=== PATIENT | male | born 1955 | race Caucasian/White ===

== ENCOUNTER 2019-03-20 05:38 | Inpatient (IN) | payer OTHER ==
--- NOTE | 2019-03-20 07:55 | PDOC ---
History of Present Illness - General Chief Complaint: Injury Stated Complaint: FALL Time Seen by Provider: 03/20/19 07:20 - History of Present Illness Initial Comments: 03/20/19 09:26 63yo M w/no PMH presents from home c/o L-sided chest pain s/p mechanical fall. Pt was in tub at 0200 and slipping and fell onto L side. Pt c/o pain in entire L side from shoulder to above L hip, 25/10 severity, constant, worse with deep breaths. Denies head injury, LOC, preceding sx such as dizziness or CP or palpitations, seizure activity including tongue biting or urinary incontinence, confusion, dizziness, CP, abdominal pain, back pain, neck pain, numbness/ tingling, weakness. Past History - Past Medical History Allergies/Adverse Reactions: Allergies Allergy/AdvReac Type Severity Reaction Status Date / Time No Known Allergies Allergy Verified 03/20/19 09:17 Home Medications: Ambulatory Orders NK [No Known Home Medication] 03/20/19 COPD: No - Suicide/Smoking/Psychosocial Hx Smoking History: Current every day smoker Number of Cigarettes Smoked Daily: 1 Information on smoking cessation initiated: No Hx Alcohol Use: No Drug/Substance Use Hx: No *Physical Exam - Vital Signs Last Vital Signs Temp Pulse Resp BP Pulse Ox 97.6 F 92 H 18 131/66 96 03/20/19 05:45 03/20/19 05:45 03/20/19 05:45 03/20/19 05:45 03/20/19 07:26 - Physical Exam Comments: 03/20/19 12:40 Gen: Alert, NAD, uncomfortable-appearing, lying on back. HEENT: PERRL, EOMI, MMM, NCAT. No conjunctival pallor. Sclera are non-icteric. Oropharynx is clear. Neck is supple. CV: Regular rate and rhythm. No murmurs, rubs, or gallops. PULM: No resp distress. CTAB, no wheezes, rales, or rhonchi. CHEST: tenderness to light palpation over all L ribs, no ecchymoses, no deformities seen. ABD: soft, NT/ND, no rebound tenderness or guarding, no CVA tenderness. BACK: No TTP of c/t/l-spine. No step-offs or deformities. MSK: No bony deformities. 2+ pulses in all extremities. Pelvis stable. Full ROM of b/l hips, L elbow, L wrist, and L shoulder. No TTP of L shoulder. NEURO: AAOx3. PERRL. No gross CN deficits. Strength and sensation grossly intact throughout. EXTREMITIES: No cyanosis. No clubbing. No edema. No calf tenderness. PSYCH: Normal mood and thought pattern. SKIN: Warm and dry. Normal capillary refill. No rashes. No jaundice. Heart Score/ECG Review - ECG Impressions Comment:: 03/20/19 18:26 NSR, 89bpm, normal axis, no ANNA/TWI ED Treatment Course - LABORATORY CBC & Chemistry Diagram: 03/20/19 13:03 03/20/19 13:03 Medical Decision Making - Medical Decision Making 03/20/19 09:31 63yo M w/no PMH presents from home c/o L-sided chest pain s/p mechanical fall. Pt was in tub at 0200 and slipping and fell onto L side. Pt c/o pain in entire L side from shoulder to above L hip, 25/10 severity, constant, worse with deep breaths. Denies head injury, LOC, preceding sx such as dizziness or CP or palpitations, seizure activity including tongue biting or urinary incontinence, confusion, dizziness, CP, abdominal pain, back pain, neck pain, numbness/ tingling, weakness. -XRs: chest, L ribs, L shoulder -Percocet and Tylenol for pain -Dispo: pending workup Pt refuses XRs 2/2 pain. Add 6 IM Morphine. 03/20/19 12:34 XRs obtained. Per my read, L rib fx. Inspiratory spirometer ordered. Pt still in significant pain - 1mg dilaudid and labs in case of admission. 03/20/19 12:45 CXR: cardiomegaly. No acute pulmonary pathology XR L shoulder: no acute pathology 03/20/19 14:22 Pt unable to walk and still in pain. Admit to Dr. Alcazar. Spoke with [facility] - requested UA/, will admit. 03/20/19 18:23 Addendum to ribs XR: AP view left ribs: cortical lucencies seen in lateral aspect of L 5th may likely represent nondisplaced fx Labs reviewed. No concerning findings on blood or urine. *DC/Admit/Observation/Transfer Diagnosis at time of Disposition: Rib fracture - Discharge Dispostion Condition at time of disposition: Fair Decision to Admit order: Yes - Referrals - Patient Instructions - Post Discharge Activity
[2019-03-20] MEDS ORDERED: ACETAMINOPHEN 325 MG TABLET (FP) PO ONE (08:00)
--- NOTE | 2019-03-20 08:30 | PDOC ---
Attending Attestation - Resident Resident Name: Rosanna Pimentel - ED Attending Attestation I have performed the following: I have examined & evaluated the patient, The case was reviewed & discussed with the resident, I agree w/resident's findings & plan, Exceptions are as noted - HPI HPI: 03/20/19 08:29 63y M no pmhx presents s/p fall from slip and fall while in the bathtub. He fell on his left side landing on the bottom of the tub. Pt notes significant amount of discomfort in his left chest/flank . the patient denies head injury, LOC, neck pain, back pain, numbness, tingling, weakness, vision changes. The patient denies on being any blood thinners or other medications. no extremity any discomfort. No symptoms prior to fall GENERAL: The patient is awake, alert, and fully oriented, Nontoxic - in no acute distress. HEAD: Normocephalic, atraumatic, negative Chatman's sign, n ofocal ttp/stepoffs/ contusions appreciated EYES: extraocular movements intact, sclera anicteric, conjunctiva clear, no racoon eyes ENT: Normal voice, Moist mucous membranes. NECK: Normal range of motion, supple, normal rom, no focal midline ttp LUNGS: Breath sounds equal, clear to auscultation bilaterally. HEART: Regular rate and rhythm, CHEST: diffusely ttp on L flank, no ecchymosis/crepitus appreciated ABDOMEN: Soft, nontender, No guarding, no rebound. No CVA tenderness EXTREMITIES: Normal range of motion, no edema. moving all 4 extremities spontaneously and symmetrically no focal bony tenderness on extremities NEUROLOGICAL: No facial assymetry, Normal speech, PSYCH: Normal mood, normal affect. SKIN: Warm, Dry, normal turgor, Suspect rib fx vs contusion - will obtain x-ray to rule out fracture, analgesia will erassess - Physicial Exam PE: 03/20/19 14:48 see above - Medical Decision Making 03/20/19 14:48 pt with rib fx - persistent pain pt was admitted for pain control Heart Score/ECG Review - ECG Impressions Comment:: 03/20/19 14:48 Twelve-lead EKG was performed and reviewed by me. There is normal sinus rhythm with a normal rate. rate of 89 The axis is normal. The intervals are normal. There is normal R wave progression There are no ST or T wave abnormalities. Impression: Normal twelve-lead EKG
[2019-03-20] MEDS ORDERED: morphine SULFATE 4 MG/ML VIAL IM ONE (09:15)
[2019-03-20] MEDS ORDERED: morphine SULFATE 4 MG/ML VIAL ONE (09:19)
[2019-03-20] MEDS ORDERED: MORPHINE SULFATE 2 MG/ML VIAL ONE (09:19)
[2019-03-20] MEDS ORDERED: HYDROmorphone HCL CARPU-JECT 2 MG/1 ML DISP.SYRIN IVPUSH ONE (12:32)
[2019-03-20] MEDS ORDERED: HYDROmorphone HCl 2 MG/ML VIAL ONE (12:39)
[2019-03-20 13:49] LABS: BASO % 0.5 % (0-2.0); EOS % 0.4 % (0-4.5); HEMATOCRIT 42.3 % (35.4-49); HEMOGLOBIN 14.6 GM/dL (11.7-16.9); LYMPH % 10.7 % (8-40); MCH 28.8 pg (25.7-33.7); MCHC 34.4 g/dl (32.0-35.9); MEAN CELL VOLUME 83.8 fl (80-96); MONO % 5.8 % (3.8-10.2); NEUT % 82.6 % (42.8-82.8); PLATELET COUNT 176 K/MM3 (134-434); RBC 5.04 M/mm3 (4.00-5.60); RDW 15.4 % (11.9-15.9); WHITE BLOOD COUNT 8.2 K/mm3 (4.0-10.0)
[2019-03-20 14:00] LABS: INR 1.04 (0.83-1.09); PROTHROMBIN TIME (PATIENT) 12.3 SEC (9.7-13.0)
[2019-03-20 14:11] LABS: ALBUMIN 3.6 g/dl (3.4-5.0); BILIRUBIN,TOTAL 0.8 mg/dL (0.2-1); CALCIUM 8.5 mg/dL (8.5-10.1); CREATININE 0.8 mg/dL (0.55-1.3); POTASSIUM 3.9 mmol/L (3.5-5.1)
[2019-03-20 14:59] LABS: PH,URINE 6.5 (5.0-8.0); URINE APPEARANCE CLEAR; URINE BILIRUBIN NEGATIVE (NEGATIVE); URINE COLOR YELLOW; URINE GLUCOSE (UA) NEGATIVE (NEGATIVE); URINE KETONE NEGATIVE (NEGATIVE); URINE LEUK ESTERASE NEGATIVE (NEGATIVE); URINE NITRITE NEGATIVE (NEGATIVE); URINE PROTEIN NEGATIVE (NEGATIVE)
--- NOTE | 2019-03-20 15:16 | EKG ---
Test Reason : Blood Pressure : / mmHG Vent. Rate : 089 BPM Atrial Rate : 089 BPM P-R Int : 150 ms QRS Dur : 090 ms QT Int : 360 ms P-R-T Axes : 027 010 054 degrees QTc Int : 438 ms NORMAL SINUS RHYTHM NORMAL ECG NO PREVIOUS ECGS AVAILABLE Confirmed by OLE REBOLLAR MD ([id number]) on 03/20/2019 3:16:19 PM Referred By: Confirmed By:OLE REBOLLAR MD
--- NOTE | 2019-03-20 17:04 | HP ---
Admitting History and Physical - Primary Care Physician PCP: Tameka Barnard - Admission Chief Complaint: Mechanical Fall, L sided pain History of Present Illness: Patient is a 63 y/o male with no significant past medical history. Patient states that while taking a shower at 2am he slipped and had a mechanical fall. Denies LOC, denies hitting his head. Patient states he landed on his left side. Pain is felt from LUE down to LLE, complains of painful inspiration. Patient is having difficulty ambulating due to pain. Denies dizziness, SOB, or chest pain prior to his fall. History Source: Patient Limitations to Obtaining History: No Limitations - Past Surgical History Past Surgical History: Yes: Cholecystectomy - Smoking History Smoking history: Current every day smoker Aproximately how many cigarettes per day: 1 - Alcohol/Substance Use Hx Alcohol Use: No - Social History ADL: Independent History of Recent Travel: No Home Medications - Allergies Allergies/Adverse Reactions: Allergies Allergy/AdvReac Type Severity Reaction Status Date / Time No Known Allergies Allergy Verified 03/20/19 09:17 - Home Medications Home Medications: Ambulatory Orders NK [No Known Home Medication] 03/20/19 Review of Systems - Review of Systems Constitutional: reports: No Symptoms Eyes: reports: No Symptoms HENT: reports: No Symptoms Neck: reports: No Symptoms Cardiovascular: reports: No Symptoms Respiratory: reports: No Symptoms Gastrointestinal: reports: No Symptoms Genitourinary: reports: No Symptoms Breasts: reports: No Symptoms Reported Musculoskeletal: reports: Extremity Pain (LLE), Joint Pain (L shoulder) Neurological: reports: No Symptoms Endocrine: reports: No Symptoms Hematology/Lymphatic: reports: No Symptoms Psychiatric: reports: No Symptoms Physical Examination Vital Signs: Vital Signs Temperature 97.8 F 03/20/19 16:40 Pulse Rate 80 03/20/19 16:40 Respiratory Rate 18 03/20/19 05:45 Blood Pressure 123/75 03/20/19 16:40 O2 Sat by Pulse Oximetry (%) 93 L 03/20/19 16:40 Constitutional: Yes: Well Nourished, No Distress, Calm Eyes: Yes: Conjunctiva Clear HENT: Yes: Atraumatic Neck: Yes: Supple Cardiovascular: Yes: Regular Rate and Rhythm Respiratory: Yes: Regular, CTA Bilaterally Gastrointestinal: Yes: Normal Bowel Sounds, Soft, Abdomen, Obese Musculoskeletal: Yes: Muscle Weakness, Other (limited passive ROM left arm) Extremities: Yes: WNL Edema: No Neurological: Yes: Alert, Oriented Psychiatric: Yes: Alert, Oriented Labs: CBC, BMP 03/20/19 13:03 03/20/19 13:03 Imaging - Results X-ray: Report Reviewed Problem List - Problems (1) Rib fracture Assessment/Plan: -CXR shows cortical lucencies seen in the lateral aspect of the left fifth rib may likely represent nondisplaced fracture -Pulm consult -incentive spirometer -pain control Code(s): S22.39XA - FRACTURE OF ONE RIB, UNSP SIDE, INIT FOR CLOS FX (2) Unsteady gait Assessment/Plan: -fall precaution -PT Code(s): R26.81 - UNSTEADINESS ON FEET Assessment/Plan see problem list dvt ppx
[2019-03-20] MEDS: traMADol HCL 50 MG TABLET PO PRN (22:12)
[2019-03-20] MEDS: HEPARIN NA (PORCINE) 5,000 UNITS/ML 1ML VIAL SQ SCH (22:16)
[2019-03-21] MEDS: ACETAMINOPHEN 325 MG TABLET (FP) PO PRN ×2 (01:45→09:31)
[2019-03-21 07:37] LABS: BASO % 0.4 % (0-2.0); EOS % 1.1 % (0-4.5); HEMATOCRIT 40.5 % (35.4-49); LYMPH % 14.1 % (8-40); MCH 29.2 pg (25.7-33.7); MCHC 34.6 g/dl (32.0-35.9); MEAN CELL VOLUME 84.3 fl (80-96); MEAN PLT VOLUME 9.2 fl (7.5-11.1); MONO % 7.7 % (3.8-10.2); NEUT % 76.7 % (42.8-82.8); RBC 4.81 M/mm3 (4.00-5.60); RDW 15.1 % (11.9-15.9); WHITE BLOOD COUNT 7.4 K/mm3 (4.0-10.0)
[2019-03-21 07:54] LABS: ALBUMIN 3.3 g/dl (3.4-5.0); BILIRUBIN,TOTAL 1.4 mg/dL (0.2-1); BLOOD UREA NITROGEN 14.5 mg/dL (7-18); CALCIUM 8.1 mg/dL (8.5-10.1); CREATININE 0.8 mg/dL (0.55-1.3); MAGNESIUM 2.5 mg/dL (1.8-2.4); PHOSPHOROUS 3.7 mg/dL (2.5-4.9); TOT PROT 6.6 g/dl (6.4-8.2)
[2019-03-21 08:12] VITALS: BMI 31.6
[2019-03-21 08:23] LABS: PLATELET COUNT 169 K/MM3 (134-434)
[2019-03-21] MEDS: HEPARIN NA (PORCINE) 5,000 UNITS/ML 1ML VIAL SQ SCH ×2 (10:26→21:46)
[2019-03-21] MEDS: traMADol HCL 50 MG TABLET PO PRN ×2 (11:26→21:49)
[2019-03-21] MEDS ORDERED: ACETAMINOPHEN 325 MG TABLET (FP) PO ONE (12:42)
[2019-03-21] MEDS ORDERED: oxyCODONE HCL 5 MG TABLET PO ONE (13:00)
--- NOTE | 2019-03-21 15:52 | CON.PULM ---
Consult Consult Specialty:: PULM/CCM Referred by:: LUKE Reason for Consultation:: SOB - History of Present Illness Chief Complaint: CP S/P Fall History of Present Illness: 63 M, with no significant past medical history. S/P mechanical fall while at a hotel. He apparently slipped in some water on the floor. No LOC. No seizure activity. He did not his head. Patient states that he landed on his left side. Most of his pain/symptoms are on inspiration. Patient also reports having difficulty ambulating due to pain. CXR / Rib Xray: Minimal non-displaced fracture of the left fifth rib / No Pleural effusions / No PTX - History Source History Provided By: Patient Limitations to Obtaining History: No Limitations - Past Medical History Pulmonary: No: Asthma, Bronchitis, Cancer, COPD, O2 Dependent, Pneumonia, Previously Intubated, Pulmonary Embolus, Pulmonary Fibrosis, Sleep Apnea - Past Surgical History Past Surgical History: Yes: Cholecystectomy - Alcohol/Substance Use Hx Alcohol Use: No - Smoking History Smoking history: Current every day smoker Aproximately how many cigarettes per day: 1 - Social History ADL: Independent History of Recent Travel: No Home Medications - Allergies Allergies/Adverse Reactions: Allergies Allergy/AdvReac Type Severity Reaction Status Date / Time No Known Allergies Allergy Verified 03/20/19 09:17 - Home Medications Home Medications: Ambulatory Orders NK [No Known Home Medication] 03/20/19 Review of Systems - Review of Systems Constitutional: denies: Chills, Fever Eyes: reports: No Symptoms HENT: reports: No Symptoms Neck: reports: No Symptoms Cardiovascular: reports: Chest Pain, Shortness of Breath. denies: Edema, Palpitations Respiratory: reports: Cough, Snoring, SOB, SOB on Exertion. denies: Exercise Intolerance, Hemoptysis, Orthopnea, PND, Wheezing Gastrointestinal: reports: No Symptoms Genitourinary: reports: No Symptoms Breasts: reports: No Symptoms Reported Musculoskeletal: reports: Back Pain, Muscle Cramps Integumentary: reports: No Symptoms Neurological: reports: No Symptoms Endocrine: reports: No Symptoms Hematology/Lymphatic: reports: No Symptoms Psychiatric: reports: No Symptoms Physical Exam Vital Sings: Vital Signs Temperature 98.3 F 03/21/19 14:03 Pulse Rate 85 03/21/19 14:03 Respiratory Rate 20 03/21/19 14:03 Blood Pressure 138/72 03/21/19 14:03 O2 Sat by Pulse Oximetry (%) 97 03/20/19 22:45 Constitutional: Yes: No Distress, Anxious Eyes: Yes: Conjunctiva Clear, EOM Intact HENT: Yes: Atraumatic, Normocephalic Neck: Yes: Supple, Trachea Midline Cardiovascular: Yes: Regular Rate and Rhythm Respiratory: Yes: CTA Bilaterally. No: Accessory Muscle Use, Cough, Rales, Rhonchi, SOB, Stridor, Tachypnea, Wheezes ...Inspection: Yes: WNL ...Clubbing: No Gastrointestinal: Yes: Normal Bowel Sounds, Soft, Abdomen, Obese Renal/: Yes: WNL Musculoskeletal: Yes: Muscle Pain Extremities: Yes: WNL Edema: No Peripheral Pulses WNL: Yes Integumentary: Yes: WNL Neurological: Yes: WNL, Alert, Oriented ...Motor Strength: WNL Psychiatric: Yes: WNL, Alert, Oriented Labs: CBC, BMP 03/21/19 06:45 03/21/19 06:45 Imaging - Results Chest X-ray: Report Reviewed, Image Reviewed X-ray: Report Reviewed, Image Reviewed Problem List - Problems (1) Fall Code(s): W19.XXXA - UNSPECIFIED FALL, INITIAL ENCOUNTER (2) Rib fracture Code(s): S22.39XA - FRACTURE OF ONE RIB, UNSP SIDE, INIT FOR CLOS FX Assessment/Plan IMP: Likely minimal non-displaced fracture of the left 5th rib There is no evidence of PTX or pleural effusion to suggest hemothorax PLAN: Analgesics Incentive Spirometry VTE prophylaxis Fall precautions There is no Pulmonary Contraindication for D/C Home Dr Calhoun
--- NOTE | 2019-03-21 21:44 | PN ---
Progress Note, Physician - Current Medication List Current Medications: Active Medications Acetaminophen (Tylenol -) 650 mg PO Q6H PRN PRN Reason: PAIN LEVEL 1-5 Last Admin: 03/21/19 09:31 Dose: 650 mg Heparin Sodium (Porcine) (Heparin -) 5,000 unit SQ BID AZIZA Last Admin: 03/21/19 10:26 Dose: 5,000 unit Tramadol HCl (Ultram -) 50 mg PO Q6H PRN PRN Reason: PAIN LEVEL 6-10 Last Admin: 03/21/19 11:26 Dose: 50 mg - Objective Vital Signs: Vital Signs Temperature 98.3 F 03/21/19 14:03 Pulse Rate 85 03/21/19 14:03 Respiratory Rate 20 03/21/19 14:03 Blood Pressure 138/72 03/21/19 14:03 O2 Sat by Pulse Oximetry (%) 97 03/21/19 11:00 Labs: CBC, BMP 03/21/19 06:45 03/21/19 06:45 INR, PTT INR 1.04 (0.83-1.09) 03/20/19 13:03
[2019-03-22] MEDS: ACETAMINOPHEN 325 MG TABLET (FP) PO PRN (01:21)
[2019-03-22] MEDS: traMADol HCL 50 MG TABLET PO PRN ×2 (08:34→19:29)
[2019-03-22] MEDS: HEPARIN NA (PORCINE) 5,000 UNITS/ML 1ML VIAL SQ SCH ×2 (10:13→21:44)
--- NOTE | 2019-03-22 19:12 | PN ---
Progress Note, Physician History of Present Illness: Pt states that he cannot move out of bed Pt also refused to be examined bc he can't move bc of pain Pt states that pain goes from his lt axilla down to lt flank Pt denies any nausea/vomiting/back pain/numbness/tingling - Current Medication List Current Medications: Active Medications Acetaminophen (Tylenol -) 650 mg PO Q6H PRN PRN Reason: PAIN LEVEL 1-5 Last Admin: 03/22/19 01:21 Dose: 650 mg Heparin Sodium (Porcine) (Heparin -) 5,000 unit SQ BID AZIZA Last Admin: 03/22/19 10:13 Dose: 5,000 unit Tramadol HCl (Ultram -) 50 mg PO Q6H PRN PRN Reason: PAIN LEVEL 6-10 Last Admin: 03/22/19 08:34 Dose: 50 mg - Objective Vital Signs: Vital Signs Temperature 97.7 F 03/22/19 14:00 Pulse Rate 89 03/22/19 14:00 Respiratory Rate 20 03/22/19 14:00 Blood Pressure 138/70 03/22/19 14:00 O2 Sat by Pulse Oximetry (%) 97 03/22/19 09:00 Constitutional: Yes: Well Nourished Labs: CBC, BMP 03/21/19 06:45 03/21/19 06:45 INR, PTT INR 1.04 (0.83-1.09) 03/20/19 13:03 Problem List - Problems (1) Rib fracture Assessment/Plan: Cont tramadol Pt told that he has to try to get out of bed but he refuses Pt states that he will not move from bed until he is better Long d/w pt about need to get OOB to chair Pt told he needs to have PT However pt is refusing Code(s): S22.39XA - FRACTURE OF ONE RIB, UNSP SIDE, INIT FOR CLOS FX (2) Fall Assessment/Plan: Check XRAY of LS spine and thoracic spine Code(s): W19.XXXA - UNSPECIFIED FALL, INITIAL ENCOUNTER
[2019-03-23 07:35] LABS: BASO % 0.6 % (0-2.0); EOS % 0.6 % (0-4.5); HEMATOCRIT 44.8 % (35.4-49); HEMOGLOBIN 15.6 GM/dL (11.7-16.9); LYMPH % 12.1 % (8-40); MCH 29.5 pg (25.7-33.7); MCHC 34.8 g/dl (32.0-35.9); MEAN CELL VOLUME 84.8 fl (80-96); MEAN PLT VOLUME 9.3 fl (7.5-11.1); MONO % 5.4 % (3.8-10.2); NEUT % 81.3 % (42.8-82.8); PLATELET COUNT 177 K/MM3 (134-434); RBC 5.28 M/mm3 (4.00-5.60); WHITE BLOOD COUNT 8.9 K/mm3 (4.0-10.0)
[2019-03-23 08:02] LABS: ALBUMIN 3.6 g/dl (3.4-5.0); BILIRUBIN,TOTAL 0.6 mg/dL (0.2-1); BLOOD UREA NITROGEN 15.5 mg/dL (7-18); CALCIUM 9.2 mg/dL (8.5-10.1); CREATININE 0.8 mg/dL (0.55-1.3); POTASSIUM 4.2 mmol/L (3.5-5.1)
[2019-03-23] MEDS: traMADol HCL 50 MG TABLET PO PRN ×2 (10:03→18:12)
[2019-03-23] MEDS: HEPARIN NA (PORCINE) 5,000 UNITS/ML 1ML VIAL SQ SCH ×2 (10:04→21:40)
--- NOTE | 2019-03-23 20:50 | PN ---
Progress Note, Physician History of Present Illness: Pt states that he cannot move out of bed Pt refusing to get out of bed or move Pt refused xrays last night and refusing to get up for physical therapist Pt states that pain goes from his lt axilla down to lt flank Pt denies any nausea/vomiting/back pain/numbness/tingling - Current Medication List Current Medications: Active Medications Acetaminophen (Tylenol -) 650 mg PO Q6H PRN PRN Reason: PAIN LEVEL 1-5 Last Admin: 03/22/19 01:21 Dose: 650 mg Heparin Sodium (Porcine) (Heparin -) 5,000 unit SQ BID AZIZA Last Admin: 03/23/19 10:04 Dose: 5,000 unit Tramadol HCl (Ultram -) 50 mg PO Q6H PRN PRN Reason: PAIN LEVEL 6-10 Last Admin: 03/23/19 18:12 Dose: 50 mg - Objective Vital Signs: Vital Signs Temperature 97.8 F 03/23/19 19:57 Pulse Rate 99 H 03/23/19 19:57 Respiratory Rate 20 03/23/19 19:57 Blood Pressure 139/73 03/23/19 19:57 O2 Sat by Pulse Oximetry (%) 98 03/23/19 09:00 Constitutional: Yes: Well Nourished Cardiovascular: Yes: WNL, Regular Rate and Rhythm Gastrointestinal: Yes: WNL, Normal Bowel Sounds, Soft Labs: CBC, BMP 03/23/19 06:30 03/23/19 06:30 INR, PTT INR 1.04 (0.83-1.09) 03/20/19 13:03 Problem List - Problems (1) Rib fracture Assessment/Plan: Cont tramadol Pt told that he has to try to get out of bed but he refuses Pt states that he will not move from bed until he is better Long d/w pt about need to get OOB to chair Pt is not cooperating w/ medical care Pt advised that at this point I am giving him 24 hrs and will dc pt in am Code(s): S22.39XA - FRACTURE OF ONE RIB, UNSP SIDE, INIT FOR CLOS FX (2) Fall Assessment/Plan: Pt refused xrays of LS spine and thoracic spine Code(s): W19.XXXA - UNSPECIFIED FALL, INITIAL ENCOUNTER
[2019-03-24] MEDS: HEPARIN NA (PORCINE) 5,000 UNITS/ML 1ML VIAL SQ SCH (10:55)
[2019-03-24] MEDS: traMADol HCL 50 MG TABLET PO PRN (11:43)
[2019-03-24 15:09] VITALS: BP 136/68; PULSE 91; TEMP 98.1
== END 2019-03-24 16:34 | disposition home health service (06) | DRG 144 ==
LOC: JER 05:38 → JERBED 14:24 → J8W 21:59
PROVIDERS: ADMIT Internal Medicine; ATTEND Internal Medicine
DX: S22.32XA Fracture of one rib, left side, initial encounter for closed fracture (principal); W18.2XXA Fall in (into) shower or empty bathtub, initial encounter; Y92.091 Bathroom in other non-institutional residence as the place of occurrence of the external cause; R26.81 Unsteadiness on feet
CPT/HCPCS: 36415; 71045-TC-FY; 71101-TC-LT-FY; 72070-TC-FY; 72100-TC-FY; 73030-TC-LT-FY; 80053; 81003; 83735; 84100; 84436; 84443; 84484; 85025; 85610; 85730; 86850; 86900; 86901; 87086; 93005; 93010; 99283-25; J1644

== ENCOUNTER 2021-10-14 22:15 | Emergency (ER) | payer SELFPAY ==
[2021-10-14 22:23] VITALS: BP 127/63; PULSE 87; TEMP 98; BMI 25.5
[2021-10-14 23:50] LABS: BASO % 0.9 % (0-2.0); EOS % 2.8 % (0-4.5); HEMATOCRIT 40.7 % (35.4-49); HEMOGLOBIN 13.8 GM/dL (11.7-16.9); LYMPH % 23.7 % (8-40); MCH 28.3 pg (25.7-33.7); MEAN CELL VOLUME 83.2 fl (80-96); MEAN PLT VOLUME 8.9 fl (7.5-11.1); MONO % 7.9 % (3.8-10.2); NEUT % 64.7 % (42.8-82.8); PLATELET COUNT 187 10^3/uL (134-434); RBC 4.89 M/mm3 (4.00-5.60); WHITE BLOOD COUNT 6.5 K/mm3 (4.0-10.0)
[2021-10-15 00:01] LABS: INR 1.19 (0.83-1.09); PROTHROMBIN TIME (PATIENT) 13.7 SEC (9.7-13.0)
[2021-10-15] MEDS ORDERED: ACETAMINOPHEN 1000 MG/100 ML BAG IVPB ONE (00:15)
[2021-10-15 00:20] LABS: ALBUMIN 3.5 g/dl (3.4-5.0); CALCIUM 8.6 mg/dL (8.5-10.1)
[2021-10-15 00:25] LABS: BILIRUBIN,TOTAL 0.6 mg/dL (0.2-1); TOT PROT 6.6 g/dl (6.4-8.2)
[2021-10-15 00:28] LABS: N-TERMINAL BNP 64.3 pg/ml (5-125)
== END 2021-10-15 01:56 | disposition left against medical advice (07) ==
LOC: JER 22:15
PROC: 3E0333Z Introduction of Anti-inflammatory into Peripheral Vein, Percutaneous Approach (ICD-10-PCS; principal; 2021-10-14)
DX: R60.0 Localized edema (principal); R01.1 Cardiac murmur, unspecified
CPT/HCPCS: 36415; 70450-TC; 71046-TC-FY; 80053; 82550; 83880; 84484; 85025; 85610; 93971-TC; 99285-25

== ENCOUNTER 2021-10-16 20:29 | Emergency (ER) | payer OTHER ==
[2021-10-16 20:55] VITALS: BP 158/70; PULSE 90; TEMP 98.7; BMI 26.2
[2021-10-16] MEDS ORDERED: KETOROLAC TROMETHAMINE 15 MG/ML VIAL IVPUSH ONE (21:42)
[2021-10-16] MEDS ORDERED: LIDOCAINE 5% TOPICAL PATCH TP ONE (21:43)
[2021-10-16] MEDS ORDERED: METHOCARBAMOL 500 MG TABLET PO ONE (21:50)
[2021-10-16] MEDS ORDERED: LIDOCAINE PATCH REMOVAL MC SCH (22:00)
[2021-10-16] MEDS ORDERED: KETOROLAC TROMETHAMINE 15 MG/ML VIAL ONE (22:03)
[2021-10-16] MEDS ORDERED: LIDOCAINE 5% TOPICAL PATCH ONE (22:03)
[2021-10-16] MEDS ORDERED: METHOCARBAMOL 500 MG TABLET ONE (22:03)
== END 2021-10-17 02:37 | disposition home or self-care (01) ==
LOC: JER 20:29
PROC: 3E0333Z Introduction of Anti-inflammatory into Peripheral Vein, Percutaneous Approach (ICD-10-PCS; principal; 2021-10-16)
DX: M54.32 Sciatica, left side (principal)
CPT/HCPCS: 72131-TC; 96374; 99284-25

== ENCOUNTER 2021-11-24 20:29 | Emergency (ER) | payer OTHER ==
[2021-11-24 20:38] VITALS: BP 145/76; PULSE 88; TEMP 97.6; BMI 25.5
[2021-11-24] MEDS ORDERED: DIPHTH,PERTUSS(ACELL),TET 0.5 ML DISP.SYRIN IM ONE ×2 (20:56→21:07)
[2021-11-24] MEDS ORDERED: ACETAMINOPHEN 325 MG TABLET (FP) PO ONE (20:56)
[2021-11-24] MEDS ORDERED: ACETAMINOPHEN 325 MG TABLET (FP) ONE (21:07)
[2021-11-24] MEDS ORDERED: KETOROLAC TROMETHAMINE 60 MG/2 ML VIAL IM ONE (23:01)
[2021-11-24] MEDS ORDERED: KETOROLAC TROMETHAMINE 60 MG/2 ML VIAL ONE (23:17)
== END 2021-11-25 00:24 | disposition home or self-care (01) ==
LOC: JER 20:29
PROC: 0HQ0XZZ Repair Scalp Skin, External Approach (ICD-10-PCS; principal; 2021-11-24)
PROC: 3E023GC Introduction of Other Therapeutic Substance into Muscle, Percutaneous Approach (ICD-10-PCS; 2021-11-24)
PROC: 3E0234Z Introduction of Serum, Toxoid and Vaccine into Muscle, Percutaneous Approach (ICD-10-PCS; 2021-11-24)
DX: S01.01XA Laceration without foreign body of scalp, initial encounter (principal); W19.XXXA Unspecified fall, initial encounter
CPT/HCPCS: 12001-25; 70450-TC; 70486-TC; 72125-TC; 90471; 90715; 96372; 99284-25

== ENCOUNTER 2021-12-07 18:08 | Emergency (ER) | payer OTHER ==
[2021-12-07 18:21] VITALS: BP 125/75; PULSE 106; TEMP 98.3; BMI 25.5
== END 2021-12-07 18:39 | disposition home or self-care (01) ==
LOC: JERFT 18:08 → JER 18:08 → JERFT 18:39
DX: S01.81XA Laceration without foreign body of other part of head, initial encounter (principal); Y99.9 Unspecified external cause status; Z48.02 Encounter for removal of sutures
CPT/HCPCS: 99281-25